=== PATIENT | female | born 1980 | race Caucasian/White ===

== ENCOUNTER 2017-06-08 13:29 | Emergency (ER) | payer SELFPAY ==
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
[2017-06-08 13:40] VITALS: BP 133/83
[2017-06-08] MEDS ORDERED: HYDROcodone/APAP 5/325MG 1 TAB TABLET PO ONE (14:00)
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
--- NOTE | 2017-06-08 14:20 | RAD ---
PROCEDURE: CHEST PA LATERAL CLINICAL INDICATION: pain chest and upper back pain. COMPARISON: None FINDINGS: No pneumothorax identified. Cardiac and mediastinal contours unremarkable. No pulmonary consolidation or acute airspace disease. No acute osseous abnormalities identified. IMPRESSION: No pulmonary consolidation or acute airspace disease.
--- NOTE | 2017-06-08 14:22 | RAD ---
Indication: Low back pain. Technique: 3 views of the lumbar spine Comparison: None Findings: Lumbar spine is in normal anatomic alignment. No compression deformities. There are 5 lumbar vertebral bodies. There is intervertebral disc space narrowing at L4-L5 and L5-S1 with small anterior osteophytes. SI joints within normal limits. Impression: 1. No compression deformities. 2. Lower lumbar spine degenerative disc disease with facet arthropathy.
[2017-06-08 15:28] LABS: BACTERIA,URINE MANY /HPF (0-FEW); BILIRUBIN,URINE NEG (NEG); CLARITY,URINE CLOUDY; COLOR,URINE YELLOW; GLUCOSE,URINE NEG (NEG); NITRITE,URINE POS (NEG); SQUAMOUS EPITHELIAL CELL,UR OCC /LPF; UROBILINOGEN,URINE 0.2 mg/dL (0.2 mg/dL)
[2017-06-08] MEDS ORDERED: CLIN300C8 PO (15:43)
[2017-06-08] MEDS ORDERED: NITR100C62 PO (15:43)
[2017-06-08] MEDS ORDERED: HYDR-971 PO (15:43)
== END 2017-06-08 15:45 | disposition home or self-care (01) ==
LOC: ER 13:29
DX: S16.1XXA Strain of muscle, fascia and tendon at neck level, initial encounter (principal); S39.012A Strain of muscle, fascia and tendon of lower back, initial encounter; S46.912A Strain of unspecified muscle, fascia and tendon at shoulder and upper arm level, left arm, initial encounter; N30.00 Acute cystitis without hematuria; K08.89 Other specified disorders of teeth and supporting structures; Z88.0 Allergy status to penicillin; V86.59XA Driver of other special all-terrain or other off-road motor vehicle injured in nontraffic accident, initial encounter; Y93.89 Activity, other specified; Y99.8 Other external cause status; Y92.488 Other paved roadways as the place of occurrence of the external cause
CPT/HCPCS: 70450; 71046; 72100; 72125; 73030; 81001; 87086; 87186; 99285-25

== ENCOUNTER 2019-10-31 16:43 | Emergency (ER) | payer SELFPAY ==
[~2019-10-31] VITALS: Ht 170.2 cm; Wt 80.0 kg
[2019-10-31 16:43] VITALS: BP 125/77
[~2019-10-31 16:43] MED LIST: CLIN300C8 PO; HYDR-3165 PO; NITR100C62 PO
--- NOTE | 2019-10-31 17:20 | PHYS DOC ---
Past History Past Medical History: No Pertinent History Past Surgical History: Tubal ligation Alcohol Use: Occasionally Drug Use: None General Adult EDM: Chief Complaint: DENTAL PROBLEM HPI: HPI: The history was obtained from the patient. Patient is a 38-year-old female with no reported PMH who presents with a chief complaint of multiple complaints. Patient is complaining of right-sided facial swelling. She notes that she has a necrotic and painful right upper molar. She denies any drainage into the mouth. She denies any dysphonia. She denies any trismus. She denies any pain with swallowing. She denies any difficulty managing her own secretions. She denies any recent dental procedures or trauma. She denies any recent antibiotics. She also is complaining of dysuria present for the past 2 weeks. She notes very mild low back pain. Denies any vomiting. States she is currently on her menstrual period. She does note 1 month ago she was tested for STIs and was told she was negative. She does note light white vaginal discharge. Reports sexual activity with 1 partner. Denies history of STI. Denies syncope. No other complaints. Review of Systems: Review of Systems: Constitutional: Denies fever or chills Eyes: Denies change in visual acuity HENT: Denies nasal congestion or sore throat Respiratory: Denies cough or shortness of breath Cardiovascular: Denies chest pain or edema GI: Denies abdominal pain, nausea, vomiting, bloody stools or diarrhea : Positive for dysuria vaginal discharge Musculoskeletal: Denies back pain or joint pain Integument: Denies rash Neurologic: Denies headache, focal weakness or sensory changes Endocrine: Denies polyuria or polydipsia Lymphatic: Denies swollen glands Psychiatric: Denies depression or anxiety Heart Score: Risk Factors: Risk Factors: DM, Current or recent (<one month) smoker, HTN, HLP, family history of CAD, obesity. Risk Scores: Score 0 - 3: 2.5% MACE over next 6 weeks - Discharge Home Score 4 - 6: 20.3% MACE over next 6 weeks - Admit for Clinical Observation Score 7 - 10: 72.7% MACE over next 6 weeks - Early Invasive Strategies Allergies: Allergies: Allergies Coded Allergies Type Severity Reaction Last Updated Verified Penicillins Allergy Unknown 06/08/17 Yes Physical Exam: PE: Constitutional: Well developed, well nourished, no acute distress, non-toxic appearance. [] HENT: Numerous dental caries noted. Mild swelling to the right mandibular region. Eyes: PERRLA, EOMI, conjunctiva normal, no discharge. [] Neck: Normal range of motion, no tenderness, supple, no stridor. [] Cardiovascular:Heart rate regular rhythm, no murmur [] Lungs & Thorax: Bilateral breath sounds clear to auscultation [] Abdomen: Soft, nontender, nonacute abdomen. No involuntary guarding or rigidity noted. No acute peritonitis. Skin: Warm, dry, no erythema, no rash. [] Back: No tenderness, no CVA tenderness. [] Extremities: No tenderness, no cyanosis, no clubbing, ROM intact, no edema. [] Neurologic: Alert and oriented X 3, normal motor function, normal sensory function, no focal deficits noted. [] Psychologic: Affect normal, judgement normal, mood normal. [] EKG: EKG: [] Radiology/Procedures: Radiology/Procedures: [] Course & Med Decision Making: Course & Med Decision Making Pertinent Labs and Imaging studies reviewed. (See chart for details) Patient is an overall well-appearing 38-year-old female who presents with multiple complaints including dental pain and dysuria. Initial vital signs unremarkable. Urinalysis shows little evidence of infection. Antibiotics to be deferred. However, she will be given an antibiotic for her presumed dental infection. She will given clindamycin given her anaphylactic reaction to penicillin. Gonorrhea and Chlamydia cultures per urinalysis are pending. She will be notified of positive results. I did offer to obtain pelvic swabs however the patient is declining. Return precautions were discussed and understood. She was given dental referrals. Instructed to follow-up with her primary care physician. She is stable for discharge home. Shai Disclaimer: Shai Disclaimer: This electronic medical record was generated, in whole or in part, using a voice recognition dictation system. Departure Departure: Impression: Primary Impression: Pain, dental Additional Impression: Dysuria Disposition: 01 HOME/RESIDENCE PRIOR TO ADM Condition: GOOD Referrals: PCP,NO (PCP) Patient Instructions: Dental Caries Scripts Clindamycin Hcl (CLINDAMYCIN HCL) 300 Mg Capsule 300 MG PO TID for dental pain for 7 Days, #21 CAP Prov: ERIC CALLAWAY DO 10/31/19 Justification of Admission: Justification of Admission: Justification of Admission Dx: N/A ERIC CALLAWAY DO Oct 31, 2019 17:20
[2019-10-31] MEDS ORDERED: CLINDAMYCIN HCL 150 MG CAPSULE PO ONE (17:30)
[2019-10-31] MEDS ORDERED: HYDROcodone/APAP 10/325 1 TAB TABLET PO ONE (17:45)
[2019-10-31 17:48] LABS: U PREG PATIENT NEGATIVE (NEG)
[2019-10-31 17:54] LABS: BACTERIA,URINE 0 /HPF (0-FEW); BILIRUBIN,URINE NEG (NEG); CLARITY,URINE CLEAR; COLOR,URINE YELLOW; GLUCOSE,URINE NEG (NEG); HYALINE CASTS, URINE OCC /HPF; NITRITE,URINE NEG (NEG); SQUAMOUS EPITHELIAL CELL,UR FEW /LPF; UROBILINOGEN,URINE 0.2 mg/dL (0.2 mg/dL)
[2019-10-31] MEDS ORDERED: CLIN300C8 PO (18:13)
== END 2019-10-31 18:48 | disposition home or self-care (01) ==
LOC: ER 16:43
DX: K08.89 Other specified disorders of teeth and supporting structures (principal); R30.0 Dysuria; M54.5 Low back pain; Z88.0 Allergy status to penicillin
CPT/HCPCS: 81001; 81025; 87491; 87591; 99283